=== PATIENT | male | born 1955 ===

== ENCOUNTER 2017-02-17 18:19 | Inpatient (IN) | payer MEDICARE ==
[2017-02-17] MEDS ORDERED: Vancomycin 1 gm/NS 200 ml 1 GM/200 ML BAG IVPB STA (19:24)
[2017-02-17] MEDS ORDERED: Sodium Chloride 0.9% 1,000 ML IV STA (19:24)
--- NOTE | 2017-02-17 19:34 | C.PDOC ---
History Of Present Illness 61 y/o male presents to ED with complaints of leg swelling and pain for 2 weeks. Patient states he had a ligament surgery 15 years ago on right knee and an ulcer last year on left leg. Patient denies any trauma, fever, chills, chest pain, dyspnea, numbness or any other complaints at this time. Time Seen by Provider: 02/17/17 19:06 Chief Complaint (Nursing): Lower Extremity Problem/Injury History Per: Patient History/Exam Limitations: no limitations Onset/Duration Of Symptoms: Days Current Symptoms Are (Timing): Still Present Past Medical History Reviewed: Historical Data, Nursing Documentation, Vital Signs Vital Signs: Last Vital Signs Temp 98.5 F 02/17/17 18:34 Pulse 75 02/17/17 20:21 Resp 20 02/17/17 20:21 BP 156/72 H 02/17/17 20:21 Pulse Ox 96 02/17/17 20:21 - Medical History PMH: Asthma, Bipolar Disorder, HTN Family History: States: No Known Family Hx - Social History Hx Alcohol Use: Yes Hx Substance Use: No - Immunization History Hx Tetanus Toxoid Vaccination: Yes Hx Influenza Vaccination: Yes Hx Pneumococcal Vaccination: Yes Review Of Systems Except As Marked, All Systems Reviewed And Found Negative. Musculoskeletal: Positive for: Leg Pain Skin: Negative for: Rash Neurological: Negative for: Weakness, Numbness Physical Exam - Physical Exam Additional Physical Exam Comments: Constitutional: No acute distress. Head: Normocephalic. Atraumatic. Eyes: PERRL. ENT: Moist mucous membranes. Neck: Supple. Cardiovascular: Regular rate. Radial pulse 2+ bilaterally. Chest: No tenderness. Respiratory: Clear to auscultation bilaterally. GI: Soft. Nontender. Nondistended. Back: No CVA tenderness. Musculoskeletal: Bilateral lower extremities pitting edema R>L. DP pulse 2+. sensation to touch intact. Blanching Erythema to R lower extremity. right lower leg warmer than left Skin: No rash. Neurologic: Alert, no focal deficit. ED Course And Treatment - Laboratory Results Result Diagrams: 02/17/17 19:36 02/17/17 19:36 ECG: Interpreted By Me, Viewed By Me ECG Rhythm: Sinus Rhythm Interpretation Of ECG: No ST elevation or depression Rate From EC (bpm) O2 Sat by Pulse Oximetry: 99 (RA) Pulse Ox Interpretation: Normal Medical Decision Making Medical Decision Making: Plan: * EKG * Blood work * UA * CXR * Antibiotics Vancomycin adminsitered for cellulitis. Also concerning for DVT, will obtain doppler in AM, will give empiric dose of lovenox now. Dr. Cole accepts patient to his service. CXR no acute disease. 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 - Scribe Statement The provider has reviewed the documentation as recorded by the Jeffreyibtamia Pratt All medical record entries made by the Jeffreyibtamia were at my direction and personally dictated by me. I have reviewed the chart and agree that the record accurately reflects my personal performance of the history, physical exam, medical decision making, and the department course for this patient. I have also personally directed, reviewed, and agree with the discharge instructions and disposition.
[2017-02-17 19:41] LABS: BASO # 0.1 K/uL (0.0-0.2); BASO % 0.7 % (0.0-2.0); EOS # 0.1 K/uL (0.0-0.7); EOS % 1.4 % (0.0-4.0); HEMATOCRIT 37.6 % (35.0-51.0); LYMPH # 2.3 K/uL (1.0-4.3); LYMPH % 31.6 % (20.0-40.0); MEAN CELL VOLUME 88.7 fL (80.0-94.0); MEAN CORPUSCULAR HEMOGLOBIN 30.8 pg (27.0-31.0); MEAN CORPUSCULAR HGB CONC 34.8 g/dL (33.0-37.0); MEAN PLATELET VOLUME 7.2 fL (7.2-11.7); MONO # 0.5 K/uL (0.0-0.8); MONO % 6.3 % (0.0-10.0); RED CELL DISTRIBUTION WIDTH 13.5 % (11.5-14.5); WHITE BLOOD COUNT 7.3 K/uL (4.8-10.8)
[2017-02-17 19:49] LABS: CHLORIDE 101 mmol/L (98-107)
[2017-02-17 19:50] LABS: POTASSIUM 3.1 mmol/L (3.6-5.2); SODIUM 142 mmol/L (132-148)
[2017-02-17 19:51] LABS: RBC URINE 1 /hpf (0-3); URINE BACTERIA RARE (<OCC); URINE BILIRUBIN NEGATIVE (NEGATIVE); URINE BLOOD NEGATIVE (NEGATIVE); URINE COLOR Straw (YELLOW); URINE GLUCOSE (UA) NORMAL (Normal); URINE KETONE NEGATIVE (NEGATIVE); URINE LEUKOCYTE ESTERASE NEG Leu/uL (Negative); URINE PROTEIN NEGATIVE (NEGATIVE); URINE UROBILINOGEN NORMAL mg/dL (0.2-1.0); WBC URINE < 1 /hpf (0-5)
[2017-02-17 19:52] LABS: ALB/GLOB RATIO 1.1 (1.0-2.1); BILIRUBIN,TOTAL 0.5 mg/dL (0.2-1.3); CARBON DIOXIDE 28 mmol/L (22-30); GFR AFRICAN-AMERICAN > 60; TOTAL PROTEIN 6.9 g/dL (6.3-8.3)
[2017-02-17 19:53] LABS: ALKALINE PHOSPHATASE 86 U/L (38-126); ALT/SGPT 26 U/L (21-72); AST/SGOT 22 U/L (17-59); BLOOD UREA NITROGEN 14 mg/dL (9-20); CALCIUM 9.2 mg/dl (8.6-10.4); GLUCOSE,RANDOM 124 mg/dL (75-110)
[2017-02-17] MEDS ORDERED: Enoxaparin 80 mg Syringe SC STA (20:03)
[2017-02-17] MEDS ORDERED: Enoxaparin 80 mg Syringe ONE (20:12)
[2017-02-17] MEDS ORDERED: Oxycodone/Acetaminophen 5/325 mg Tab PO PRN (20:37)
[2017-02-17] MEDS: (Novolog) Insulin Aspart, Recombinant 100 u/ml 10 ml vial SC SCH (22:38)
[2017-02-17 22:53] VITALS: RESP 20
[2017-02-18] MEDS: Potassium Chloride 20 mEq ER Tab PO SCH ×2 (03:37→09:25)
[2017-02-18] MEDS: (Novolog) Insulin Aspart, Recombinant 100 u/ml 10 ml vial SC SCH ×4 (08:13→21:30)
[2017-02-18] MEDS: Enoxaparin 40 mg Syringe SC SCH (09:25)
--- NOTE | 2017-02-18 11:12 | RAD ---
HISTORY: R leg swelling COMPARISON: No prior. FINDINGS: LUNGS: The lungs are well inflated and clear. There is mild left basilar atelectasis. PLEURA: No significant pleural effusion identified, no pneumothorax apparent. CARDIOVASCULAR: Normal. OSSEOUS STRUCTURES: No significant abnormalities. VISUALIZED UPPER ABDOMEN: Normal. OTHER FINDINGS: None. IMPRESSION: No active pulmonary disease.
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
[2017-02-18] MEDS: Divalproex 500 mg DR Tab PO SCH (17:19)
--- NOTE | 2017-02-18 20:01 | CARD ---
APPROVED REPORT EXAM: Two-dimensional and M-mode echocardiogram with Doppler and color Doppler. Other Information Quality : GoodRhythm : NSR INDICATION R/o DVT RISK FACTORS Hypertension 2D DIMENSIONS IVSd1.0 (0.7-1.1cm)LVDd4.4 (3.9-5.9cm) PWd1.1 (0.7-1.1cm)LVDs3.3 (2.5-4.0cm) FS (%) 24.6 %LVEF (%)57.0 (>50%) M-Mode DIMENSIONS Left Atrium (MM)3.94 (2.5-4.0cm)Aortic Root3.51 (2.2-3.7cm) Aortic Cusp Exc.2.02 (1.5-2.0cm) Mitral Valve MV E Zlkwqjlu42.1cm/sMV A Kghrlaxo98.8cm/sE/A ratio1.1 TDI E/Lateral E'0.0E/Medial E'0.0 Tricuspid Valve TR Peak Ceoghlfi040io/sTR Peak Gr.[id number] LEFT VENTRICLE The left ventricle is normal size. There is normal left ventricular wall thickness. The left ventricular function is normal. The left ventricular ejection fraction is within the normal range. About 65%. No regional wall motion abnormalities noted. The left ventricular diastolic function is normal. No left ventricle thrombus noted on this study. There is no ventricular septal defect visualized. There is no left ventricular aneurysm. There is no mass noted in the left ventricle. RIGHT VENTRICLE The right ventricle is normal size. There is normal right ventricular wall thickness. The right ventricular systolic function is normal. ATRIA The left atrium size is normal. The right atrium size is normal. The interatrial septum is intact with no evidence for an atrial septal defect. AORTIC VALVE The aortic valve is normal in structure and function. No aortic regurgitation is present. There is no aortic valvular stenosis. There is no aortic valvular vegetation. MITRAL VALVE The mitral valve is normal in structure and function. There is no evidence of mitral valve prolapse. There is no mitral valve stenosis. There is no mitral valve regurgitation noted. TRICUSPID VALVE The tricuspid valve is normal in structure and function. There is mild tricuspid valve regurgitation noted. There is no tricuspid valve prolapse or vegetation. There is no tricuspid valve stenosis. PULMONIC VALVE The pulmonary valve is normal in structure and function. There is no pulmonic valvular regurgitation. There is no pulmonic valvular stenosis. GREAT VESSELS The aortic root is normal in size. The ascending aorta is normal in size. The pulmonary artery is normal. The IVC is normal in size and collapses >50% with inspiration. PERICARDIAL EFFUSION The pericardium appears normal. There is no pleural effusion. <Conclusion> The ascending aorta diameter is 3.7 cm, upper normal. Otherwise normal study.
--- NOTE | 2017-02-18 20:25 | CARD ---
APPROVED REPORT EKG Measurement Heart [id number] HI [id number] <Conclusion> Normal sinus rhythm Nonspecific T wave abnormality Prolonged QT Counterclockwise rotation Abnormal ECG
[2017-02-19 07:19] VITALS: PULSE 62
[2017-02-19] MEDS: (Novolog) Insulin Aspart, Recombinant 100 u/ml 10 ml vial SC SCH (07:58)
[2017-02-19] MEDS: Divalproex 500 mg DR Tab PO SCH (09:24)
[2017-02-19] MEDS: Potassium Chloride 20 mEq ER Tab PO SCH (09:25)
[2017-02-19] MEDS: Enoxaparin 40 mg Syringe SC SCH (09:25)
--- NOTE | 2017-02-19 14:37 | PCM.PYCHPN ---
Psychiatric Progress Note - Psychiatric Progress Note Patient seen today, length of contact: 15 min Patient Chief Complaint: "I feel very good" Problems Identified/Issues Discussed: Pt improving. Reports that he feels much better after taking medications and slept well last night. Denies anger, hallucinations, SI, HI. After care discussed. Pt counseled to visit [facility] across the street to establish psychiatric follow up and medical management of bipolar disorder. Medication Change: Yes Medical Record Reviewed: Yes Mental Status Examination - Cognitive Function Orientation: Person, Place, Situation, Time Memory: Intact Attention: WNL Concentration: WNL Association: WNL Fund of Knowledge: WNL - Mood Mood: Anxious - Affect Affect: Broad - Speech Speech: Appropriate - Formal Thought Process Formal Thought Process: No Impairment - Suicidal Ideation Suicidal Ideation: No - Homicidal Ideation Homicidal Ideation: No Goal/Treatment Plan - Goal/Treatment Plan Progress Toward Problem(s) and Goals/Treatment Plan: Bipolar disorder: Support, CBT and psychotherapy Depakote 500 mg PO bid Seroquel 100 mg PO hs Psychiatry will sign off. Call us with questions. 16 min - Smoking Cessation Smoking Cessation Initiated: No
[2017-02-19 15:56] VITALS: BP 159/85; TEMP 98.4; O2SAT 98
--- NOTE | 2017-02-19 16:01 | CP.PCM.PN ---
Subjective - Date & Time of Evaluation Date of Evaluation: 02/19/17 Time of Evaluation: 09:10 - Subjective Subjective: Medicine note for Dr. Cole Patient seen and examined. Patient states that he slept very well after taking seroquel last night. Patient reports he is feeling much better. Patient states he will schedule follow up exam with Dr. Darnell. Patient reports good appetite as well and denies nausea. Patient reports swelling behind right knee that bothers him when he straightens his leg. Objective - Vital Signs/Intake and Output Vital Signs (last 24 hours): Temp Pulse Resp BP Pulse Ox 98.4 F 62 20 159/85 H 98 02/19/17 15:00 02/19/17 15:00 02/19/17 15:00 02/19/17 15:00 02/19/17 15:00 Intake and Output: 02/19/17 02/19/17 06:59 18:59 Intake Total 610 1050 Output Total 800 Balance 610 250 - Medications Medications: Current Medications Divalproex Sodium (Depakote Dr) 500 mg PO BID [facility] Last Admin: 02/19/17 09:24 Dose: 500 mg Enoxaparin Sodium (Lovenox) 40 mg SC DAILY [facility] Last Admin: 02/19/17 09:25 Dose: 40 mg Famotidine (Pepcid) 20 mg PO BID [facility] Last Admin: 02/19/17 09:25 Dose: 20 mg Vancomycin HCl 1 gm/ Sodium (Chloride) 250 mls @ 166.7 mls/hr IVPB Q12H [facility] Last Admin: 02/19/17 09:25 Dose: 166.7 mls/hr Insulin Aspart (Novolog) 0 unit SC ACHS [facility] PRN Reason: Protocol Last Admin: 02/19/17 07:58 Dose: Not Given Lisinopril (Zestril) 5 mg PO DAILY [facility] Last Admin: 02/19/17 11:25 Dose: 5 mg Metformin HCl (Glucophage) 500 mg PO BID [facility] Last Admin: 02/19/17 09:24 Dose: 500 mg Oxycodone/Acetaminophen (Percocet 5/325 Mg Tab) 1 tab PO Q4H PRN PRN Reason: Severe Pain Stop: 02/20/17 20:38 Potassium Chloride (K-Dur 20 Meq Er Tab) 40 meq PO DAILY [facility] Last Admin: 02/19/17 09:25 Dose: 40 meq Quetiapine Fumarate (Seroquel) 100 mg PO HS [facility] Last Admin: 02/18/17 21:28 Dose: 100 mg - Constitutional Appears: Non-toxic, No Acute Distress - Head Exam Head Exam: ATRAUMATIC, NORMOCEPHALIC - Eye Exam Eye Exam: EOMI - ENT Exam ENT Exam: Mucous Membranes Moist - Respiratory Exam Respiratory Exam: Clear to Ausculation Bilateral - Cardiovascular Exam Cardiovascular Exam: +S1, +S2 - GI/Abdominal Exam GI & Abdominal Exam: Soft, Normal Bowel Sounds. absent: Tenderness - Extremities Exam Additional comments: b/l lower extremity edema, right greater than left tenderness and swelling in right popliteal fossa, Juares's cyst - Neurological Exam Neurological Exam: Alert, Awake - Skin Skin Exam: Dry, Warm Assessment and Plan - Assessment and Plan (Free Text) Assessment: Lower extremity Cellulitis with Juares's cyst Lower extremity duplex scan completed- prelim report reports no DVT will discharge patient on bactrim patient to follow up with PMD Dr. Darnell Hx of septal defect pt reports "hole in his heart" echocardiogram: LVEF 65%, no septal defect, RV systolic function normal, LV diastolic function normal, mild tricuspid regurgitation, ascending aorta 3.7cm, upper limit of normal Hypertension starting lisinopril 5mg daily Bipolar I with hypomania Dr. Tolliver, psychiatry, consulted- help appreciated starting patient on seroquel 100mg PO HS, depakote 500mg PO BID Hx Diabetes continue metformin 500mg PO BID patient refused blood draw for Hgb A1c accuchecks ISS Prophylactic measure lovenox 40mg sc daily pepcid All Medical Management as per Dr. Cole Patient is stable for discharge home per Dr. Cole. Patient is to follow up with his primary medical doctor, Dr. Darnell, within one week of discharge. Patient is being prescribed new medications for diabetes, hypertension, bipolar disorder, and cellulitis. Patient is to follow up at the [facility] for mental health counseling services. Patient is to return to the ED if his symptoms worsen or reoccur. This was explained to the patient who understands and agrees.
--- NOTE | 2017-02-20 15:06 | VASCLAB ---
PROCEDURE: Lower Extremity Venous Duplex Exam. HISTORY: lower extremity swelling, R>L PRIORS: None. TECHNIQUE: Bilateral common femoral, femoral, popliteal and posterior tibial, peroneal and great saphenous veins were evaluated. Flow was assessed with color Doppler, compressibility, assessment of phasic flow and augmentation response. Report prepared by Valentin Yoder, LEMUEL, RVT FINDINGS: RIGHT: 1. Common Femoral Vein: 1.1. Compressibility - Fully compressible: Thrombus - None : Flow - Phasic: Augmentation -Normal: Reflux - None. 2. Femoral Vein: 2.1. Compressibility - Fully compressible: Thrombus - None : Flow - Phasic: Augmentation -Normal: Reflux - None. 3. Popliteal Vein: 3.1. Compressibility - Fully compressible: Thrombus - None : Flow - Phasic: Augmentation -Normal: Reflux - None. 4. Posterior Tibial Vein: 4.1. Compressibility - Fully compressible: Thrombus - None: Flow - Phasic: Augmentation -Normal: Reflux - None. 5. Peroneal Vein: 5.1. Compressibility - Fully compressible: Thrombus - None: Flow - Phasic: Augmentation -Normal: Reflux - None. 6. Great Saphenous Vein: 6.1. Compressibility - Fully compressible: Thrombus - None: Flow - Phasic: Augmentation - Normal: Reflux - None. LEFT: 1. Common Femoral Vein: 1.1. Compressibility - Fully compressible: Thrombus - None: Flow - Phasic: Augmentation -Normal: Reflux - None. 2. Femoral Vein: 2.1. Compressibility - Fully compressible: Thrombus - None: Flow - Phasic: Augmentation -Normal: Reflux - None. 3. Popliteal Vein: 3.1. Compressibility - Fully compressible: Thrombus - None : Flow - Phasic: Augmentation -Normal: Reflux - None. 4. Posterior Tibial Vein: 4.1. Compressibility - Fully compressible: Thrombus - None: Flow - Phasic: Augmentation -Normal: Reflux - None. 5. Peroneal Vein: 5.1. Compressibility - Fully compressible: Thrombus - None: Flow - Phasic: Augmentation -Normal: Reflux - None. 6. Great Saphenous Vein: 6.1. Compressibility - Fully compressible: Thrombus - None: Flow - Phasic: Augmentation - Normal: Reflux - None. OTHER FINDINGS: Anechoic non vascularlized mass noted behind bilateral knee. IMPRESSION: Right: No evidence of deep or superficial vein thrombosis of the right lower extremity. Normal valve function noted of the right side. Left: No evidence of deep or superficial vein thrombosis of the left lower extremity. Normal valve function noted of the left side.
== END 2017-02-19 16:36 | disposition home or self-care (01) | DRG 638 ==
LOC: C.ER 18:19 → C.3T 20:29
PROVIDERS: ADMIT Internal Medicine Pulmonary Disease; ATTEND Internal Medicine Pulmonary Disease
DX: E11.628 Type 2 diabetes mellitus with other skin complications (principal); L03.116 Cellulitis of left lower limb; L03.115 Cellulitis of right lower limb; I10 Essential (primary) hypertension; F31.0 Bipolar disorder, current episode hypomanic; Z79.4 Long term (current) use of insulin; M71.21 Synovial cyst of popliteal space [Baker], right knee; J45.909 Unspecified asthma, uncomplicated